=== PATIENT | female | born 1990 | race Caucasian/White ===

== ENCOUNTER 2021-01-11 09:29 | Emergency (ER) | payer OTHER, SELFPAY ==
--- OUTSIDE RECORDS SUMMARY | 2021-01-11 09:32 | XMS REPORT | Continuity of Care Document ---
:1990 Author Organization Formerly [facility] t Address [address] [place] [address] Care Team Providers Name Role Phone Abdon Guzman Attending Clinician Doctor Unassigned, Name Attending Clinician Unavailable Problems This patient has no known problems. Allergies, Adverse Reactions, Alerts This patient has no known allergies or adverse reactions. Medications This patient has no known medications. Procedures This patient has no known procedures. Encounters Start End Encounter Admission Attending Care Care Encounter Source Date/Time Date/Time Type Type Clinicians Facility Department ID 2020-02-13 2020-02-13 Telephone RHONA Marquez [id number] 00:00:00 00:00:00 Veronica Coppola OPTICIANRY TEACHER [id number] [facility] [id number] MATERNAL [id number] & CHILD [address] [place] [address] 2020-01-26 2020-01-26 Patient Doctor [facility] [id number] 00:00:00 00:00:00 Secure Msg Unassigned, OPTICIANRY TEACHER [id number] [facility] [id number] MATERNAL [id number] & CHILD [address] [place] [address] Results This patient has no known results.
[2021-01-11] MEDS ORDERED: IPRATROPIUM BROM 0.5MG/2.5ML ONE (10:12)
[2021-01-11] MEDS ORDERED: predniSONE 20 MG TAB ONE (10:12)
[2021-01-11] MEDS ORDERED: ALBUTEROL 2.5 MG/3 ML NEB SOL ONE (10:12)
--- NOTE | 2021-01-11 10:48 | RAD REPORT ---
EXAM DESCRIPTION: Bart Snyder (2 Views)01/11/2021 10:42 am CLINICAL HISTORY: Cough COMPARISON: 2017 FINDINGS: The lungs appear clear of acute infiltrate. The heart is normal size IMPRESSION: No acute abnormalities displayed
--- NOTE | 2021-01-11 11:03 | ER ---
Nurse's Notes [facility] Name: Sourav Chairez Age: 30 yrs Sex: Female : 1990 Arrival Date: 01/11/2021 Time: 09:32 Bed 25 Private MD: Diagnosis: Acute bronchitis, unspecified Presentation: 01/11 09:41 Chief complaint: Patient states: productive cough x weeks. Denies fever. Coronavirus ss screen: Client denies travel out of the [place] in the last 14 days. Ebola Screen: Patient denies exposure to infectious person. Patient denies travel to an Ebola-affected area in the 21 days before illness onset. Initial Sepsis Screen: Does the patient meet any 2 criteria? HR > 90 bpm. No. Patient's initial sepsis screen is negative. Does the patient have a suspected source of infection? No. Patient's initial sepsis screen is negative. Risk Assessment: Do you want to hurt yourself or someone else? Patient reports no desire to harm self or others. Onset of symptoms is unknown. 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 - Social history:: Smoking status: Patient reports the use of cigarette tobacco products, smokes one pack cigarettes per day. Screenin:40 Abuse screen: Denies threats or abuse. Nutritional screening: No deficits noted. tw2 Tuberculosis screening: No symptoms or risk factors identified. Fall Risk None identified. Assessment: 09:40 Reassessment: provider at bedside at this time. tw2 10:16 Reassessment: Patient appears in no apparent distress at this time. No changes from tw2 previously documented assessment. Patient and/or family updated on plan of care and expected duration. Pain level reassessed. 10:44 Reassessment: pt back from xray at this time NAD. tw2 11:01 Reassessment: Patient appears in no apparent distress at this time. No changes from tw2 previously documented assessment. Patient and/or family updated on plan of care and expected duration. Pain level reassessed. provider at bedside at this time. 11:07 Reassessment: Patient appears in no apparent distress at this time. No changes from tw2 previously documented assessment. Patient and/or family updated on plan of care and expected duration. Pain level reassessed. Vital Signs: 09:41 BP 113 / 74; Pulse 103; Resp 14; Temp 97.8(TE); Pulse Ox 98% on R/A; Weight 52.16 kg; Height 5 ft. 5 in. (165.10 cm); Pain 0/10; 10:53 BP 102 / 58; Pulse 74; Resp 17; Pulse Ox 97% on R/A; tw2 09:41 Body Mass Index 19.14 (52.16 kg, 165.10 cm) ED Course: 09:32 Patient arrived in ED. mr 09:33 Rosanne Menon FNP-C [facility]. kb 09:33 Miguel A Agudelo MD is Attending Physician. kb 09:35 Bed in low position. Call light in reach. Pulse ox on. NIBP on. tw2 09:40 Mohini Vick RN is Primary Nurse. tw2 09:41 Arm band placed on right wrist. ss 09:43 Triage completed. ss 10:42 Chest Pa And Lat (2 Views) XRAY In Process Unspecified. EDMS 11:07 No provider procedures requiring assistance completed. Patient did not have IV access tw2 during this emergency room visit. Administered Medications: 10:00 Drug: predniSONE 40 mg Route: PO; tw2 15:58 Follow up: Response: No adverse reaction tw2 10:02 Drug: DuoNeb (3:1) (2.5 mg - 0.5 mg) 3 ml Route: Nebulizer; tw2 11:07 Follow up: Response: No adverse reaction tw2 Outcome: 11:02 Discharge ordered by . kb 11:07 Discharged to home ambulatory. tw2 11:07 Condition: stable 11:07 Discharge instructions given to patient, Instructed on discharge instructions, follow up and referral plans. no drinking with medication, no driving heavy equipment, medication usage, Demonstrated understanding of instructions, follow-up care, medications, Prescriptions given X 2. 11:07 Patient left the ED. tw2 Signatures: Dispatcher [employer] EDMS Rosanne Menon FNP-C FNP-Ckb Rivera, Mary mr Smirch, Shelby, RN RN ss Vick, Mohini, RN RN tw2
--- NOTE | 2021-01-11 11:03 | EDPHYS ---
Physician Documentation [facility] Name: Sourav Chairez Age: 30 yrs Sex: Female : 1990 Arrival Date: 01/11/2021 Time: 09:32 Bed 25 Private MD: ED Physician Miguel A Agudelo HPI: 01/11 09:43 This 30 yrs old Female presents to ER via Ambulatory with complaints of Cough.kb 09:43 The patient or guardian reports cough, that is intermittent, described as moderate, kb with productive sputum, that is yellow, difficulty breathing. Onset: The symptoms/episode began/occurred 3 week(s) ago. Severity of symptoms: At their worst the symptoms were moderate, in the emergency department the symptoms are unchanged. Modifying factors: The symptoms are alleviated by nothing, the symptoms are aggravated by nothing. Associated signs and symptoms: The patient has no apparent associated signs or symptoms. The patient has not experienced similar symptoms in the past. The patient has not recently seen a physician. 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 - Social history:: Smoking status: Patient reports the use of cigarette tobacco products, smokes one pack cigarettes per day. ROS: 09:42 Constitutional: Negative for fever, chills, and weight loss, ENT: Negative for injury, kb pain, and discharge, Cardiovascular: Negative for chest pain, palpitations, and edema, Abdomen/GI: Negative for abdominal pain, nausea, vomiting, diarrhea, and constipation, MS/Extremity: Negative for injury and deformity, Skin: Negative for injury, rash, and discoloration, Neuro: Negative for headache, weakness, numbness, tingling, and seizure. 09:42 Respiratory: Positive for cough, dyspnea on exertion, shortness of breath, Negative for hemoptysis, orthopnea, pleurisy, sputum production, wheezing. Exam: 09:42 Constitutional: This is a well developed, well nourished patient who is awake, alert, kb and in no acute distress. Head/Face: Normocephalic, atraumatic. Chest/axilla: Normal chest wall appearance and motion. Nontender with no deformity. No lesions are appreciated. Cardiovascular: Regular rate and rhythm with a normal S1 and S2. No gallops, murmurs, or rubs. Normal PMI, no JVD. No pulse deficits. Abdomen/GI: Soft, non-tender, with normal bowel sounds. No distension or tympany. No guarding or rebound. No evidence of tenderness throughout. Skin: Warm, dry with normal turgor. Normal color with no rashes, no lesions, and no evidence of cellulitis. MS/ Extremity: Pulses equal, no cyanosis. Neurovascular intact. Full, normal range of motion. 09:42 Respiratory: the patient does not display signs of respiratory distress, Respirations: normal, Breath sounds: wheezing: expiratory that is mild, is scattered. 09:42 Neuro: Orientation: is normal, to person, place, time \T\ situation. Mentation: is normal, able to follow commands, Motor: is normal, moves all fours, Sensation: is normal, Gait: is steady, without difficulty. Vital Signs: 09:41 BP 113 / 74; Pulse 103; Resp 14; Temp 97.8(TE); Pulse Ox 98% on R/A; Weight 52.16 kg; ss Height 5 ft. 5 in. (165.10 cm); Pain 0/10; 10:53 BP 102 / 58; Pulse 74; Resp 17; Pulse Ox 97% on R/A; tw2 09:41 Body Mass Index 19.14 (52.16 kg, 165.10 cm) ss MDM: 09:35 Patient medically screened. kb 09:42 Data reviewed: vital signs, nurses notes. Data interpreted: Pulse oximetry: on room air kb is 98 %. Interpretation: normal. 11:02 Counseling: I had a detailed discussion with the patient and/or guardian regarding: the kb historical points, exam findings, and any diagnostic results supporting the discharge/admit diagnosis, radiology results, the need for outpatient follow up, a family practitioner, to return to the emergency department if symptoms worsen or persist or if there are any questions or concerns that arise at home. 01/11 09:41 Order name: Chest Pa And Lat (2 Views) XRAY; Complete Time: 10:50 kb Administered Medications: 10:00 Drug: predniSONE 40 mg Route: PO; tw2 15:58 Follow up: Response: No adverse reaction tw2 10:02 Drug: DuoNeb (3:1) (2.5 mg - 0.5 mg) 3 ml Route: Nebulizer; tw2 11:07 Follow up: Response: No adverse reaction tw2 Disposition: 16:55 Co-signature as Attending Physician, Miguel A Agudelo MD I agree with the assessment and rufus plan of care. Disposition: 01/11/21 11:02 Discharged to Home. Impression: Acute bronchitis, unspecified. - Condition is Stable. - Discharge Instructions: Acute Bronchitis, [id number], Steps to Quit Smoking, [id number]. - Prescriptions for Prednisone 20 mg Oral Tablet - take 1 tablet by ORAL route once daily for 5 days; 5 tablet. Albuterol Sulfate 90 mcg/actuation - inhale 1-2 puff by INHALATION route every 4-6 hours; 1 Inhaler. - Medication Reconciliation Form, Thank You Letter, Antibiotic Education, Prescription Opioid Use, Work release form form. - Follow up: Emergency Department; When: As needed; Reason: Worsening of condition. Follow up: Private Physician; When: 2 - 3 days; Reason: Recheck today's complaints, Continuance of care, Re-evaluation by your physician. Signatures: Dispatcher [employer] Rosanne Fry, GARNETT MECHANIC-C GARNETT MECHANIC-Miguel A Castillo MD MD cha Wise, Tara, RN RN tw2 Corrections: (The following items were deleted from the chart) 11:07 11:02 01/11/2021 11:02 Discharged to Home. Impression: Acute bronchitis, unspecified. tw2 Condition is Stable. Forms are Work release form, Medication Reconciliation Form, Thank You Letter, Antibiotic Education, Prescription Opioid Use. Follow up: Emergency Department; When: As needed; Reason: Worsening of condition. Follow up: Private Physician; When: 2 - 3 days; Reason: Recheck today's complaints, Continuance of care, Re-evaluation by your physician. kb
[2021-01-11 12:47] VITALS: BP 102/58; O2SAT 97
== END 2021-01-11 11:07 | disposition home or self-care (01) ==
LOC: ER 09:29
DX: J20.9 Acute bronchitis, unspecified (principal); F17.210 Nicotine dependence, cigarettes, uncomplicated; Z88.1 Allergy status to other antibiotic agents; Z91.040 Latex allergy status; Z91.048 Other nonmedicinal substance allergy status
CPT/HCPCS: 71046; 99284; J7512